=== PATIENT | male | born 1950 | race Caucasian/White ===

== ENCOUNTER 2017-02-23 05:49 | Day surgery (SDC) | payer MEDICARE, BC ==
[2017-02-23] MEDS ORDERED: Dextrose 5%-Lactated Ringers 1,000 ML IV SCH (06:00)
[2017-02-23] MEDS ORDERED: Propofol 200 MG/20 ML SDV ONE (06:58)
[2017-02-23] MEDS ORDERED: fentaNYL 100 MCG/2 ML SDV ONE (06:59)
[2017-02-23] MEDS ORDERED: Midazolam 1 MG/ML 2 ML SDV ONE (06:59)
[2017-02-23] MEDS ORDERED: Glycopyrrolate 0.2 MG/ML 2 ML SDV IVPUSH ONE (07:15)
[2017-02-23 09:00] VITALS: BP 122/84
--- NOTE | 2017-02-26 13:42 | OR ---
DATE OF PROCEDURE: 02/23/2017 PREOPERATIVE DIAGNOSIS: Gastroesophageal reflux disease. POSTOPERATIVE DIAGNOSES: 1. 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 2. Moderate antral gastritis. OPERATIVE PROCEDURE: Esophagogastroduodenoscopy with: 1. Biopsies of antrum for CLOtest. 2. Biopsies of esophagogastric junction for histologic evaluation. ANESTHESIA: IV sedation. INDICATIONS FOR PROCEDURE: This is a 67-year-old male with a history of Borjas esophagus. He presently is on omeprazole 40 mg a day and states the symptoms of reflux are fairly well controlled. Plan is to proceed with an upper GI endoscopy with follow-up biopsies as indicated. Potential risks including bleeding and perforation were discussed, and the patient wishes to proceed. DETAILS OF PROCEDURE: The patient was taken to the operating room and placed in a left lateral decubitus position. IV sedation was administered, after which the upper GI endoscope was passed orally through the length of the esophagus and into the stomach with retroflexion view of the fundus, and thereafter through the pyloric channel and into the junction of the third and fourth portions of the duodenum. Findings included normal hypopharynx, larynx, upper esophageal sphincter, and esophageal body. At the EG junction, there was a fairly large hiatal hernia measuring around 5 cm. With this, there was a quite active gastroesophageal reflux disease with the distal esophagus being covered with some patchy erythematous exudate. There was upward extension of the columnar mucosa consistent with Borjas's esophagus. Within the stomach apart from the hiatal hernia, the proximal stomach was unremarkable. The antrum did have some moderate patchy redness but without erosions or ulcers. Pyloric channel and duodenum were unremarkable. Biopsies were then obtained from the antrum and sent for CLOtest for H. pylori. Multiple biopsies were then obtained from the esophagogastric junction and sent for histologic evaluation. Minimal bleeding from the biopsy sites was seen and the procedure then concluded. At this point, we will have the patient continue the present medications. We will see him back on 03/07/2017 to discuss the treatment options. Given the active gastroesophageal reflux disease a anti-reflux procedure may be warranted. Tyrone Dasilva MD /[id number]
== END 2017-02-23 09:05 | disposition home or self-care (01) ==
LOC: JP.SDS 05:49
PROVIDERS: ATTEND Surgery
DX: B37.81 Candidal esophagitis (principal); K44.9 Diaphragmatic hernia without obstruction or gangrene; K21.9 Gastro-esophageal reflux disease without esophagitis; F32.9 Major depressive disorder, single episode, unspecified; E03.9 Hypothyroidism, unspecified; Z98.84 Bariatric surgery status; Z88.8 Allergy status to other drugs, medicaments and biological substances; F17.210 Nicotine dependence, cigarettes, uncomplicated; Z98.890 Other specified postprocedural states
CPT/HCPCS: 43239; 87081; J2250; J2704; J3010; J7042; 88305; 88312; J3490

== ENCOUNTER 2017-04-13 07:30 | Inpatient (IN) | payer MEDICARE, BC ==
[2017-04-27] MEDS ORDERED: Acetaminophen 500 MG Tab PO ONE (05:45)
[2017-04-27] MEDS ORDERED: Scopolamine 1.5 MG Transdermal Patch TOP SCH (05:45)
[2017-04-27] MEDS ORDERED: Dextrose 5%-Lactated Ringers 1,000 ML IV SCH (06:30)
[2017-04-27] MEDS ORDERED: fentaNYL 250 MCG/5 ML SDV ONE (07:01)
[2017-04-27] MEDS ORDERED: Rocuronium 50 MG/5 ML Vial ONE (07:02)
[2017-04-27] MEDS ORDERED: Neostigmine Methylsulfate 1 MG/ML 5 ML Syringe ONE (07:02)
[2017-04-27] MEDS ORDERED: Propofol 200 MG/20 ML SDV ONE (07:02)
[2017-04-27] MEDS ORDERED: Glycopyrrolate 0.2 MG/ML 5 ML MDV ONE (07:02)
[2017-04-27] MEDS ORDERED: Dexamethasone 4 MG/ML SDV ONE (07:02)
[2017-04-27] MEDS ORDERED: Ondansetron 4 MG/2 ML SDV ONE (07:02)
[2017-04-27] MEDS ORDERED: Midazolam 1 MG/ML 2 ML SDV ONE (07:02)
[2017-04-27] MEDS ORDERED: ceFAZolin 2 GM in Sodium Chloride 0.9% 50 ML IV ONE (07:15)
[2017-04-27] MEDS ORDERED: ceFAZolin 2 GM in Premix Bag 1 BAG IV ONE (07:15)
[2017-04-27] MEDS ORDERED: Ropivacaine 35 ML, Dexamethasone 8 MG, EPINEPHrine 0.4 MG, Sodium Chloride 0.9% 42.6 ML NERVRT SCH ×4 (07:30)
[2017-04-27] MEDS ORDERED: Ketamine 500 MG/5 ML MDV IV SCH (07:30)
[2017-04-27] MEDS ORDERED: Sodium Chloride 0.9% 10 ML ONE (07:43)
[2017-04-27] MEDS ORDERED: Naloxone 0.4 MG/ML SDV ONE (08:47)
[2017-04-27] MEDS ORDERED: fentaNYL 100 MCG/2 ML SDV IVPUSH ONE (09:09)
[2017-04-27] MEDS ORDERED: hydrOXYzine HCl 100 MG/2 ML SDV IM ONE (09:10)
[2017-04-27] MEDS: Dextrose 5%-Lactated Ringers 1,000 ML IV SCH ×2 (10:32→18:52)
[2017-04-27] MEDS ORDERED: Ondansetron 4 MG/2 ML SDV IV PRN (10:35)
[2017-04-27] MEDS: Pantoprazole 40 MG Vial IV SCH (12:41)
[2017-04-27] MEDS: Metoclopramide 10 MG/2 ML SDV IV SCH ×2 (12:42→17:41)
[2017-04-27] MEDS ORDERED: Fluconazole/Normal Saline 200 MG in Premix Bag 1 BAG IV ONE (13:00)
[2017-04-27] MEDS: ceFAZolin 2 GM in Sodium Chloride 0.9% 50 ML IV SCH ×2 (16:27→22:30)
[2017-04-27] MEDS ORDERED: Naloxone 0.4 MG/ML SDV IV PRN (16:59)
[2017-04-27] MEDS ORDERED: HYDROmorphone/Normal Saline 15 MG/30 ML PCA IV PRN (16:59)
[2017-04-27] MEDS: Tamsulosin 0.4 MG Cap.ER PO SCH (21:36)
[2017-04-28] MEDS: Metoclopramide 10 MG/2 ML SDV IV SCH ×5 (00:16→23:01)
[2017-04-28] MEDS: Dextrose 5%-Lactated Ringers 1,000 ML IV SCH ×3 (01:40→19:02)
[2017-04-28] MEDS: ceFAZolin 2 GM in Sodium Chloride 0.9% 50 ML IV SCH (07:57)
[2017-04-28] MEDS: Levothyroxine 25 MCG Tab PO SCH (07:57)
[2017-04-28] MEDS ORDERED: HYDROmorphone 2 MG Tab PO PRN (07:58)
[2017-04-28] MEDS: Psyllium Husk Powder Sugar Free 3.4 GM Packet PO SCH (09:57)
[2017-04-28] MEDS: buPROPion 150 MG Tab.ER PO SCH (09:57)
[2017-04-28] MEDS: Aspirin 81 MG Tab.EC PO SCH (09:58)
[2017-04-28] MEDS: Fluconazole 100 MG Tab PO SCH (09:58)
[2017-04-28] MEDS: Acetaminophen 325 MG Tab PO PRN ×2 (13:41→22:58)
[2017-04-28] MEDS: Pantoprazole 40 MG Vial IV SCH (14:36)
[2017-04-28] MEDS: Tamsulosin 0.4 MG Cap.ER PO SCH (20:21)
[2017-04-28] MEDS ORDERED: HYDROmorphone 2 MG Tab ONE (22:52)
[2017-04-28] MEDS ORDERED: Acetaminophen 325 MG Tab ONE (22:52)
[2017-04-29] MEDS: Dextrose 5%-Lactated Ringers 1,000 ML IV SCH (05:12)
[2017-04-29] MEDS: Metoclopramide 10 MG/2 ML SDV IV SCH (06:24)
[2017-04-29] MEDS: Levothyroxine 25 MCG Tab PO SCH (10:02)
[2017-04-29] MEDS: buPROPion 150 MG Tab.ER PO SCH (10:02)
[2017-04-29] MEDS: Fluconazole 100 MG Tab PO SCH (10:02)
[2017-04-29] MEDS: Aspirin 81 MG Tab.EC PO SCH (10:02)
[2017-04-29] MEDS: Psyllium Husk Powder Sugar Free 3.4 GM Packet PO SCH (10:03)
[2017-04-29 11:05] VITALS: BP 130/72
--- NOTE | 2017-04-30 07:00 | PN ---
DATE OF SERVICE: 04/28/2017 The patient has been afebrile with stable vital signs. Pain control has been relatively satisfactory. The bladder catheter came out last night and he does have quite a bit of history of retained urine, is on Flomax. Clinically, we need to make sure he is able to get his urine going today. Otherwise, we will go to a full liquid diet, oral pain medication, and he will likely be ready for discharge home tomorrow. Tyrone Dasilva MD /[id number]
--- NOTE | 2017-04-30 10:12 | DISCH ---
FINAL DIAGNOSES: 1. Paraesophageal diaphragmatic hernia associated with gastroesophageal reflux disease refractory to medical management. 2. Mediastinal lipoma. 3. Treated hypothyroidism. 4. Hyperlipidemia. 5. Erectile dysfunction. 6. History of major depression in remission. 7. History of thrombocytopenia, recently diagnosed. 8. Benign prostatic hyperplasia with urinary retention. OPERATIVE PROCEDURES: Done on 04/27, diagnostic laparoscopy with: 1. Repair of paraesophageal diaphragmatic hernia with mesh with Huseyin fundoplication. 2. Excision of mediastinal lipoma. SUMMARY: This is a 67-year-old male presenting with gastroesophageal reflux disease refractory to medical management. On the date of admission, the patient underwent a Huseyin fundoplication with concurrent repair of paraesophageal hernia with mesh. He had a mediastinal lipoma, which was also removed. Postoperatively, no major problems were noted. He was tolerating full liquid diet well and taking few Dilaudid along with Tylenol for pain. He will be instructed to stay on a full liquid diet x2 weeks and then gradually advance to solids as tolerated. Medications will include Dilaudid 2 to 4 mg q.4 hours p.r.n. pain, #30, along with Tylenol p.r.n. He was instructed to discontinue the omeprazole and follow up with Meg Webb in this clinic on 05/07/2017.
--- NOTE | 2017-04-30 15:27 | OR ---
DATE OF PROCEDURE: 04/27/2017 PREOPERATIVE DIAGNOSIS: Gastroesophageal reflux disease refractory to medical management. POSTOPERATIVE DIAGNOSES: 1. Gastroesophageal reflux disease refractory to medical management associated with large paraesophageal diaphragmatic hernia. 2. Mediastinal lipoma. OPERATIVE PROCEDURE: Diagnostic laparoscopy with: 1. Repair of paraesophageal diaphragmatic hernia with mesh with Huseyin fundoplication (40773). 2. Excision of mediastinal lipoma (48579). ANESTHESIA: General. RN ACUTE: Meg Webb PA-C. INDICATION FOR PROCEDURE: This is a 67-year-old male presenting with longstanding gastroesophageal reflux disease which has progressively worsened to the point where it has become refractory to medical management. Plan is to proceed with a Huseyin fundoplication. Potential risks including bleeding, infection, injury to underlying viscera, problems with fundoplication, such as dysphagia, gas-bloat syndrome, disorders in gastric emptying rate, or incomplete relief of reflux symptoms were all reviewed, along with the remote possibility of cardiopulmonary, septic, or hemorrhagic complications leading to , and the patient wishes to proceed. DETAILS OF PROCEDURE: The patient was taken to the operating room, placed in a supine position. After general endotracheal anesthesia was induced, he was converted to a lithotomy position. Barry catheter was inserted and the abdomen prepped and draped. At 15 cm inferior and 5 cm left of the xiphoid process, a transverse incision was made and the peritoneal cavity entered under direct vision with an Optiview trocar inflated to 15 mmHg pressure with CO2. Laparoscope was then reinserted. No underlying trocar insertion site injuries were seen. Following this, 5 additional trocars were placed across the upper and mid abdomen, and general exploration was undertaken. As expected, the patient was noted to have a large diaphragmatic hernia. This was predominantly a paraesophageal hernia in terms of prolapse of the gastric fundus and perigastric fat, along with a tongue of omentum in the plane anterior to the course of the esophagus. The hernia was then reduced, and the peritoneum overlying it was incised and reflected downward. During the course of the dissection, mediastinal lipoma was encountered, and to facilitate satisfactory repair, this was excised and sent as a pathologic specimen. The crura were then from the esophagus on both sides, and then a retrocrural window was then bluntly constructed. Nucla drain was placed around the esophagus and then the remaining attachments to the esophagus were freed up using Harmonic scalpel, such that a 4-5 cm segment of intraabdominal esophagus was achieved. Posterior crural repair was accomplished with a series of 0 Ethibond sutures, reinforced with PTFE pledgets. Because of the size of hernia, an absorbable mesh that was a Phasix ST mesh was placed posterior to the esophagus overlying the crural repair and then slightly on the side of the esophagus. This was affixed with some titanium tacking screws. The omentum was then divided from the greater curvature of the stomach with Harmonic scalpel. This dissection was then continued up to divide the short gastric vessels, including the highest and posterior short gastric vessels. The remaining attachments of the fundus posteriorly along the crura were then divided with Harmonic scalpel as well, resulting in a nicely mobile fundus. The fundus was then retrieved through the retroesophageal window. Anesthesia then passed a guidewire orally through the esophagus, then into the stomach. Over this, a 54-Algerian Savary dilator was placed, and a 2-stitch 3 cm fundoplication was accomplished with 0 Ethibond sutures, reinforced with PTFE pledgets. Both sides of the fundoplication were then tacked up to the overlying diaphragm with the same stitch and pledget combination. At that point, the dilator and wire were removed, and the fundoplication was inspected and found to be satisfactorily loose. At that point, no further problems were noted. Trocars were removed and peritoneal cavity deflated. Fascia at the 12 mm camera port was closed with 0 Vicryl stitch and the skin at each incision with 4-0 Vicryl skin stitch. Dressing was applied. The patient was taken to the recovery room in satisfactory condition. Physician operating room assistant, Meg Webb played an essential role in assisting in this case, helping to position the patient, retract structures as needed, as well as suturing and cutting sutures when indicated. Her presence improved patient safety and decreased the operative time. Tyrone Dasilva MD /[id number]
== END 2017-04-29 11:06 | disposition home or self-care (01) | DRG 328 ==
LOC: JP.SDS 04-27 05:26 → JP.MS 04-27 08:30 → EDSTATUS 04-27 10:00
PROVIDERS: ADMIT Surgery; ATTEND Surgery
PROC: 0DV44ZZ Restriction of Esophagogastric Junction, Percutaneous Endoscopic Approach (ICD-10-PCS; principal; 2017-04-27)
PROC: 0BUT4JZ Supplement Diaphragm with Synthetic Substitute, Percutaneous Endoscopic Approach (ICD-10-PCS; 2017-04-27)
PROC: 0WBC4ZX Excision of Mediastinum, Percutaneous Endoscopic Approach, Diagnostic (ICD-10-PCS; 2017-04-27)
DX: K21.9 Gastro-esophageal reflux disease without esophagitis (principal); K44.9 Diaphragmatic hernia without obstruction or gangrene; D17.4 Benign lipomatous neoplasm of intrathoracic organs; F17.210 Nicotine dependence, cigarettes, uncomplicated; K22.70 Barrett's esophagus without dysplasia; F41.1 Generalized anxiety disorder; E78.5 Hyperlipidemia, unspecified; F10.20 Alcohol dependence, uncomplicated; N40.1 Benign prostatic hyperplasia with lower urinary tract symptoms; R33.8 Other retention of urine; D69.6 Thrombocytopenia, unspecified; M25.552 Pain in left hip; G89.29 Other chronic pain; N52.9 Male erectile dysfunction, unspecified; Z88.8 Allergy status to other drugs, medicaments and biological substances; Z79.82 Long term (current) use of aspirin; Z87.898 Personal history of other specified conditions
CPT/HCPCS: 88304; 94762; A9270-GY; C1781; C9113; J0171; J0690; J1100; J1170; J1450; J2250; J2310; J2405; J2704; J2710; J2765; J2795; J3010; J3410; J7030; J7042; J7050